=== PATIENT | male | born 1980 ===

== ENCOUNTER 2016-09-28 09:11 | Emergency (ER) | payer OTHER ==
[2016-09-28 09:21] VITALS: BP 120/68; PULSE 93; RESP 18; TEMP 96.6; O2SAT 98
--- NOTE | 2016-09-28 10:48 | ED PDOC ---
Upper Extremity Pain/Injury Time Seen by Provider: 09/28/16 09:24 Chief Complaint (Nursing): Finger,Hand,&Wrist Chief Complaint (Provider): left thumb pain History Per: Patient History/Exam Limitations: no limitations Onset/Duration Of Symptoms: Days (1) Current Symptoms Are (Timing): Still Present Quality: Sharp Severity: Moderate Exacerbating Factor(s): Strenuous Use Of Affected Area, Movement Additional Complaint(s): 36yo male c/o left thumb pain after being arrested yesterday and "the cuffs being too tight". Denies other injury. R hand dominant. Past Medical History Reviewed: Historical Data, Nursing Documentation, Vital Signs Vital Signs: Last Vital Signs Temp 96.6 F L 09/28/16 09:18 Pulse 93 H 09/28/16 09:18 Resp 18 09/28/16 09:18 BP 120/68 09/28/16 09:18 Pulse Ox 98 09/28/16 09:18 - Medical History PMH: Anxiety, Asthma, Back Problems, Bipolar Disorder, Depression, HTN, Pancreatitis Denies: Chronic Kidney Disease - Family History Family History: States: Unknown Family Hx - Social History Drugs: Denies - Immunization History Hx Tetanus Toxoid Vaccination: Yes Hx Influenza Vaccination: No Hx Pneumococcal Vaccination: No - Home Medications Home Medications: Ambulatory Orders Medication Instructions Recorded Ibuprofen 600 mg PO Q6H PRN #15 tab 03/31/15 Acetaminophen with Codeine 1 tab PO Q8H #10 tab 05/25/16 [Tylenol with Codeine No. 3 300 mg-30 mg] Methylprednisolone [Medrol Dose 4 mg PO DAILY #21 tab 05/25/16 Pack (21 tabs)] Ibuprofen [Motrin Tab] 600 mg PO Q6 PRN #15 tab 09/28/16 - Allergies Allergies/Adverse Reactions: Allergies Allergy/AdvReac Type Severity Reaction Status Date / Time No Known Allergies Allergy Verified 09/28/16 09:25 Review of Systems ROS Statement: Except As Marked, All Systems Reviewed And Found Negative Constitutional: Negative for: Fever, Chills Cardiovascular: Negative for: Chest Pain, Palpitations Genitourinary Male: Negative for: Dysuria, Frequency Musculoskeletal: Positive for: Hand Pain Physical Exam - Reviewed Nursing Documentation Reviewed: Yes Vital Signs Reviewed: Yes - Physical Exam Appears: Positive for: Well, Non-toxic Head Exam: Positive for: ATRAUMATIC Skin: Positive for: Normal Color, Warm, Dry Eye Exam: Positive for: Normal appearance. Negative for: Periorbital swelling Neck: Positive for: Painless ROM Respiratory: Negative for: Respiratory Distress Extremity: Positive for: Normal ROM, Other (+tenderness thenar eminence L hand, mild edema no ecchymosis deformity or lacerations) - ECG O2 Sat by Pulse Oximetry: 98 Medical Decision Making Medical Decision Making: Will check hand XRay and initiate pain control w motrin 600mg PO x1 Accession No. : [id number] Patient Name / ID : BUCKY HENRY / [id number] Exam Date : 09/28/2016 10:23:56 ( Approved ) Study Comment : Sex / Age : M / 36Y Creator : Seth Granados MD Dictator : Seth Granados MD Animal Cop : Core Microarchitect : Seth Granados MD Approver2 : Report Date : 09/28/2016 11:25:45 My Comment : PROCEDURE: Left Hand Radiographs. HISTORY: thumb pain L hand COMPARISON: None. FINDINGS: BONES: No fracture. There is an expansile lytic lesion the ulnar base of the 4th proximal phalanx. There is cortical thinning. This is a circumscribed lesion with a sharp zone of transition. Most likely diagnosis is enchondroma. Recommend further evaluation. Consider orthopedic referral. Metallic orthopedic hardware in distal ulna, likely status post ORIF. JOINTS: Normal. No osteoarthritic changes. SOFT TISSUES: Normal. OTHER FINDINGS: None. IMPRESSION: Lytic expansile lesion at the base of the 4th proximal phalanx. Possible enchondroma. Recommend further evaluation. Consider orthopedic referral. No acute fracture. Unremarkable thumb Referred to hand surgery online marketing specialist and explained mandatory importance of followup. Disposition - Clinical Impression Clinical Impression: Enchondroma of bone, Thumb sprain - Patient ED Disposition Is Patient to be Admitted: No Counseled Patient/Family Regarding: Studies Performed, Diagnosis, Need For Followup, Rx Given - Disposition Referrals: Flaquito Becker MD [Staff Provider] - Disposition: Routine/Home Disposition Time: 11:20 Condition: STABLE Additional Instructions: See hand surgeon for evaluation of possible enchondroma of left 4th finger. This may require surgery or repeat/ further testing. Use splint for your hand, take pain medication as directed. Prescriptions: Ibuprofen [Motrin Tab] 600 mg PO Q6 PRN #15 tab PRN Reason: Pain, Moderate (4-7) Instructions: Finger Sprain (ED)
--- NOTE | 2016-09-28 11:27 | RAD ---
PROCEDURE: Left Hand Radiographs. HISTORY: thumb pain L hand COMPARISON: None. FINDINGS: BONES: No fracture. There is an expansile lytic lesion the ulnar base of the 4th proximal phalanx. There is cortical thinning. This is a circumscribed lesion with a sharp zone of transition. Most likely diagnosis is enchondroma. Recommend further evaluation. Consider orthopedic referral. Metallic orthopedic hardware in distal ulna, likely status post ORIF. JOINTS: Normal. No osteoarthritic changes. SOFT TISSUES: Normal. OTHER FINDINGS: None. IMPRESSION: Lytic expansile lesion at the base of the 4th proximal phalanx. Possible enchondroma. Recommend further evaluation. Consider orthopedic referral. No acute fracture. Unremarkable thumb. Status post ORIF distal ulna.
== END 2016-09-28 12:06 | disposition home or self-care (01) ==
LOC: H.ER 09:11
DX: S63.602A Unspecified sprain of left thumb, initial encounter (principal); X50.9XXA Other and unspecified overexertion or strenuous movements or postures, initial encounter; Y92.89 Other specified places as the place of occurrence of the external cause; D16.9 Benign neoplasm of bone and articular cartilage, unspecified; F31.9 Bipolar disorder, unspecified; F41.9 Anxiety disorder, unspecified; I10 Essential (primary) hypertension

== ENCOUNTER 2016-09-29 00:27 | Emergency (ER) | payer OTHER ==
[2016-09-29 00:36] VITALS: BP 131/79; PULSE 97; RESP 18; TEMP 98.9; O2SAT 98
--- NOTE | 2016-09-29 00:59 | ED PDOC ---
Upper Extremity Pain/Injury Time Seen by Provider: 09/29/16 00:41 Chief Complaint (Nursing): Upper Extremity Problem/Injury Chief Complaint (Provider): wrist pain History Per: Patient Additional Complaint(s): Right-hand dominant male presents with pain to left wrist for several days. Patient was placed under arrest a few days ago and sprained his wrist/hand from handcuff. He is currently wearing a velcro wrist splint. Patient has been taking Motrin but he ran out of this medication so he came to ED this evening. He is requesting Motrin dose at this time. He denies any more recent trauma. He was seen yesterday in ED and had x-ray done which was negative for fracture or dislocation. Past Medical History Reviewed: Historical Data, Nursing Documentation, Vital Signs Vital Signs: Last Vital Signs Temp 98.9 F 09/29/16 00:34 Pulse 97 H 09/29/16 00:34 Resp 18 09/29/16 00:34 BP 131/79 09/29/16 00:34 Pulse Ox 98 09/29/16 00:34 - Medical History PMH: Anxiety, Asthma, Back Problems, Bipolar Disorder, Depression, HTN - Surgical History Other surgeries: left wrist fracture repair - Family History Family History: States: No Known Family Hx - Living Arrangements Living Arrangements: Other (non domiciled) - Social History Current smoker - smoking cessation education provided: Yes Alcohol: None Drugs: Cannabis - Immunization History Hx Tetanus Toxoid Vaccination: Yes - Home Medications Home Medications: Ambulatory Orders Medication Instructions Recorded Ibuprofen 600 mg PO Q6H PRN #15 tab 03/31/15 Acetaminophen with Codeine 1 tab PO Q8H #10 tab 05/25/16 [Tylenol with Codeine No. 3 300 mg-30 mg] Methylprednisolone [Medrol Dose 4 mg PO DAILY #21 tab 05/25/16 Pack (21 tabs)] Ibuprofen [Motrin Tab] 600 mg PO Q6 PRN #15 tab 09/28/16 - Allergies Allergies/Adverse Reactions: Allergies Allergy/AdvReac Type Severity Reaction Status Date / Time No Known Allergies Allergy Verified 09/28/16 09:25 Review of Systems ROS Statement: Except As Marked, All Systems Reviewed And Found Negative Musculoskeletal: Positive for: Other (left hand and wrist pain) Physical Exam - Reviewed Nursing Documentation Reviewed: Yes Vital Signs Reviewed: Yes - Physical Exam Appears: Positive for: Well, Non-toxic, No Acute Distress Neck: Positive for: Normal, Painless ROM Respiratory: Negative for: Respiratory Distress Extremity: Positive for: Other (mild tenderness left thumb with full ROM, full left wrist with pain, no swelling or ecchymosis noted) Neurologic/Psych: Positive for: Alert, Oriented - ECG O2 Sat by Pulse Oximetry: 98 Pulse Ox Interpretation: Normal Medical Decision Making Medical Decision Makin36 year old with left hand and wrist pain Plan: PO motrin Previous chart reviewed. X-ray showed incidental finding of enchondroma. Patient states he is aware finding and was referred to hand specialist for follow-up. Patient was instructed to continue with motrin for pain. Disposition - Clinical Impression Clinical Impression: Pain in wrist, Pain of hand - Patient ED Disposition Is Patient to be Admitted: No Counseled Patient/Family Regarding: Diagnosis, Need For Followup - Disposition Referrals: [facility] [Provider Group] Disposition: Routine/Home Disposition Time: 00:59 Condition: STABLE Additional Instructions: Continue with [id number] Tylenol or Motrin for pain. Follow-up with primary doctor or with clinic. Instructions: Wrist Injury (ED), Finger Sprain (ED)
== END 2016-09-29 01:13 | disposition home or self-care (01) ==
LOC: H.ER 00:27
DX: M25.532 Pain in left wrist (principal); I10 Essential (primary) hypertension; F31.9 Bipolar disorder, unspecified

== ENCOUNTER 2016-10-04 01:18 | Emergency (ER) | payer OTHER ==
[2016-10-04 01:30] VITALS: BP 133/77; PULSE 94; RESP 16; TEMP 98.2; O2SAT 97
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
[2016-10-04] MEDS ORDERED: cefTRIAXone (Rocephin) 250 mg Inj IM ONE (02:16)
[2016-10-04] MEDS ORDERED: cefTRIAXone (Rocephin) 250 mg Inj ONE (02:25)
[2016-10-04] MEDS ORDERED: Lidocaine 1% Inj (20ml) ONE (02:26)
[2016-10-04] MEDS ORDERED: Sterile Water 10 ML IV ONE (03:47)
== END 2016-10-04 02:18 | disposition home or self-care (01) ==
LOC: H.ER 01:18
DX: Z11.3 Encounter for screening for infections with a predominantly sexual mode of transmission (principal); R42 Dizziness and giddiness; F31.9 Bipolar disorder, unspecified; F41.9 Anxiety disorder, unspecified; I10 Essential (primary) hypertension; K85.90 Acute pancreatitis without necrosis or infection, unspecified

== ENCOUNTER 2016-10-05 10:56 | Emergency (ER) | payer OTHER ==
[2016-10-05 11:00] VITALS: BP 129/81; PULSE 84; RESP 18; TEMP 97.7; O2SAT 99
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
== END 2016-10-05 12:30 | disposition home or self-care (01) ==
LOC: H.ER 10:56
DX: M54.9 Dorsalgia, unspecified (principal); M79.673 Pain in unspecified foot; I10 Essential (primary) hypertension

== ENCOUNTER 2016-10-07 15:27 | Emergency (ER) | payer OTHER ==
[2016-10-07 15:36] VITALS: RESP 18; O2SAT 99
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
[2016-10-07 23:43] VITALS: BP 130/78; PULSE 78; TEMP 97.6
== END 2016-10-07 23:43 | disposition left against medical advice (07) ==
LOC: H.ER 15:27
DX: S09.90XA Unspecified injury of head, initial encounter (principal); S00.12XA Contusion of left eyelid and periocular area, initial encounter; Y04.0XXA Assault by unarmed brawl or fight, initial encounter; Y92.89 Other specified places as the place of occurrence of the external cause

== ENCOUNTER 2016-10-18 03:12 | Emergency (ER) | payer OTHER ==
[2016-10-18 03:21] VITALS: BP 116/67; PULSE 70; RESP 18; TEMP 98.1; O2SAT 100
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
[2016-10-18 04:01] LABS: BASO % 0.4 % (0.0-2.0); EOS # 0.2 K/uL (0.0-0.7); EOS % 3.1 % (0.0-4.0); HEMATOCRIT 40.8 % (35.0-51.0); LYMPH # 2.7 K/uL (1.0-4.3); LYMPH % 41.3 % (20.0-40.0); MEAN CELL VOLUME 88.7 fl (80.0-94.0); MEAN CORPUSCULAR HEMOGLOBIN 30.4 pg (27.0-31.0); MEAN CORPUSCULAR HGB CONC 34.2 g/dL (33.0-37.0); MEAN PLATELET VOLUME 9.7 fl (7.2-11.7); MONO # 0.5 K/uL (0.0-0.8); MONO % 8.1 % (0.0-10.0); NEUT % 47.1 % (50.0-75.0); NRBC % 0.2 % (0.0-0.0); RED CELL DISTRIBUTION WIDTH 12.9 % (11.5-14.5); WHITE BLOOD COUNT 6.5 K/uL (4.8-10.8)
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
[2016-10-18 04:10] LABS: ALB/GLOB RATIO 1.3 (1.0-2.1); ALKALINE PHOSPHATASE 42 U/L (38-126); ALT/SGPT 59 U/L (21-72); AST/SGOT 45 U/L (17-59); BILIRUBIN,TOTAL 0.4 mg/dl (0.2-1.3); BLOOD UREA NITROGEN 9 mg/dl (9-20); CARBON DIOXIDE 25 mmol/L (22-30); CHLORIDE 108 mmol/L (98-107); GFR AFRICAN-AMERICAN > 60; GLUCOSE,RANDOM 93 mg/dL (75-110); POTASSIUM 3.9 MMOL/L (3.6-5.0); SODIUM 142 mmol/l (132-148); TOTAL PROTEIN 6.6 G/DL (6.3-8.2)
== END 2016-10-18 05:13 | disposition home or self-care (01) ==
LOC: H.ER 03:12
DX: R51 Headache (principal); I10 Essential (primary) hypertension; K85.90 Acute pancreatitis without necrosis or infection, unspecified; F31.9 Bipolar disorder, unspecified; F41.9 Anxiety disorder, unspecified; G89.29 Other chronic pain; J45.909 Unspecified asthma, uncomplicated; F17.200 Nicotine dependence, unspecified, uncomplicated

== ENCOUNTER 2016-10-31 22:47 | Emergency (ER) | payer OTHER ==
[2016-10-31 23:02] VITALS: BP 161/85; PULSE 82; RESP 16; TEMP 98; O2SAT 100
--- NOTE | 2016-11-01 00:56 | ED PDOC ---
HPI: Psych/Substance Abuse Time Seen by Provider: 10/31/16 23:21 Chief Complaint (Nursing): Substance Abuse Chief Complaint (Provider): Denies complaint History Per: Patient History/Exam Limitations: no limitations Additional Complaint(s): Pt reports smoking marijuana and doing PCP today. PT states he has no complaints and is homeless so he has nowhere to go. Past Medical History Reviewed: Historical Data, Nursing Documentation, Vital Signs Vital Signs: Last Vital Signs Temp 98.0 F 10/31/16 22:52 Pulse 82 10/31/16 22:52 Resp 16 10/31/16 22:52 BP 161/85 H 10/31/16 22:52 Pulse Ox 100 10/31/16 22:52 - Medical History PMH: Anxiety, Asthma, Back Problems, Bipolar Disorder, Depression, HTN, Pancreatitis Denies: Chronic Kidney Disease - Surgical History Surgical History: No Surg Hx - Family History Family History: States: Unknown Family Hx - Living Arrangements Living Arrangements: With Family - Social History Current smoker - smoking cessation education provided: No Alcohol: Occasional Drugs: Cannabis, Other - Immunization History Hx Tetanus Toxoid Vaccination: Yes Hx Influenza Vaccination: No Hx Pneumococcal Vaccination: No - Home Medications Home Medications: Ambulatory Orders Medication Instructions Recorded Ibuprofen [Motrin] 600 mg PO Q6 PRN #15 tab 10/05/16 traZODone 100 mg PO HS 10/17/16 - Allergies Allergies/Adverse Reactions: Allergies Allergy/AdvReac Type Severity Reaction Status Date / Time No Known Allergies Allergy Verified 10/05/16 11:33 Review of Systems ROS Statement: Except As Marked, All Systems Reviewed And Found Negative Physical Exam - Reviewed Nursing Documentation Reviewed: Yes Vital Signs Reviewed: Yes - Physical Exam Appears: Positive for: Well, Non-toxic, No Acute Distress Head Exam: Positive for: ATRAUMATIC, NORMAL INSPECTION, NORMOCEPHALIC Skin: Positive for: Normal Color, Warm, DRY Eye Exam: Positive for: EOMI, Normal appearance, PERRL ENT: Positive for: Normal ENT Inspection Neck: Positive for: Normal, Painless ROM Cardiovascular/Chest: Positive for: Regular Rate, Rhythm Respiratory: Positive for: CNT, Normal Breath Sounds Gastrointestinal/Abdominal: Positive for: Normal Exam, Bowel Sounds, Soft Back: Positive for: Normal Inspection Extremity: Positive for: Normal ROM Neurologic/Psych: Positive for: Alert, Oriented - ECG O2 Sat by Pulse Oximetry: 100 Medical Decision Making Medical Decision Making: EKG - NSR Disposition - Clinical Impression Clinical Impression: Substance abuse - Patient ED Disposition Is Patient to be Admitted: No Counseled Patient/Family Regarding: Diagnosis, Need For Followup - Disposition Referrals: [facility] [Outside] Disposition: Routine/Home Disposition Time: 00:54 Condition: GOOD Instructions: Polysubstance Abuse (ED)
--- NOTE | 2016-11-01 12:21 | CARD ---
APPROVED REPORT EKG Measurement Heart [id number] <Conclusion> Normal sinus rhythm Normal ECG
== END 2016-11-01 01:11 | disposition home or self-care (01) ==
LOC: H.ER 22:47
DX: F19.10 Other psychoactive substance abuse, uncomplicated (principal); F31.9 Bipolar disorder, unspecified; F41.9 Anxiety disorder, unspecified; I10 Essential (primary) hypertension; J45.909 Unspecified asthma, uncomplicated; K85.90 Acute pancreatitis without necrosis or infection, unspecified

== ENCOUNTER 2017-03-12 14:27 | Emergency (ER) | payer OTHER ==
[2017-03-12 14:33] VITALS: BP 129/43; PULSE 93; RESP 18; TEMP 97; O2SAT 98
--- NOTE | 2017-03-12 15:58 | ED PDOC ---
Lower Extremity Pain/Injury Time Seen by Provider: 03/12/17 15:08 Chief Complaint (Nursing): Lower Extremity Problem/Injury Chief Complaint (Provider): Right ankle pain History Per: Patient History/Exam Limitations: no limitations Onset/Duration Of Symptoms: Hrs Current Symptoms Are (Timing): Still Present Additional History Per: Patient Additional Complaint(s): The patient is a 36yo male, brought to the ED by EMS for evaluation. Patient states he was walking on an uneven sidewalk, tripped and fell, sustaining abrasions to his left palm and right lower extremity. he denies any drug or alcohol usage today. He offers no additional medical complaints. Past Medical History Reviewed: Historical Data, Nursing Documentation, Vital Signs Vital Signs: Last Vital Signs Temp 97 F L 03/12/17 14:29 Pulse 93 H 03/12/17 14:29 Resp 18 03/12/17 14:29 BP 129/43 L 03/12/17 14:29 Pulse Ox 98 03/12/17 14:29 - Medical History PMH: Anxiety, Asthma, Back Problems, Bipolar Disorder, Depression, HTN (no meds) , Pancreatitis Denies: Chronic Kidney Disease - Surgical History Surgical History: No Surg Hx - Family History Family History: States: Unknown Family Hx - Social History Current smoker - smoking cessation education provided: No Alcohol: None Drugs: Denies - Immunization History Hx Tetanus Toxoid Vaccination: Yes Hx Influenza Vaccination: No Hx Pneumococcal Vaccination: No - Home Medications Home Medications: Ambulatory Orders Medication Instructions Recorded Ibuprofen [Motrin] 600 mg PO Q6 PRN #15 tab 10/05/16 traZODone 100 mg PO HS 10/17/16 - Allergies Allergies/Adverse Reactions: Allergies Allergy/AdvReac Type Severity Reaction Status Date / Time No Known Allergies Allergy Verified 03/12/17 14:29 Review of Systems Musculoskeletal: Positive for: Hand Pain (right), Leg Pain (left) Psych: Negative for: Other (EtOH or drug use) Physical Exam - Reviewed Nursing Documentation Reviewed: Yes Vital Signs Reviewed: Yes - Physical Exam Appears: Positive for: Non-toxic, No Acute Distress Head Exam: Positive for: ATRAUMATIC, NORMAL INSPECTION, NORMOCEPHALIC Skin: Positive for: Warm, Dry Neck: Positive for: Supple Cardiovascular/Chest: Positive for: Regular Rate, Rhythm Respiratory: Positive for: Normal Breath Sounds. Negative for: Respiratory Distress Extremity: Positive for: Normal ROM, Other (abrasion to left palm). Negative for: Deformity, Swelling Neurologic/Psych: Positive for: Alert, Oriented. Negative for: Motor/Sensory Deficits - ECG O2 Sat by Pulse Oximetry: 98 (RA) Pulse Ox Interpretation: Normal Medical Decision Making Medical Decision Making: Time: 1514 Impression: Right ankle pain s/p fall Plan: -- XR Right ankle Reassess Scribe Attestation: Documented by Nisha Flores acting as a scribe for XENIA Villarreal Provider Attestation: All medical record entries made by the Scribe were at my direction and personally dictated by me. I have reviewed the chart and agree that the record accurately reflects my personal performance of the history, physical exam, medical decision making, and the department course for this patient. I have also personally directed, reviewed, and agree with the discharge instructions and disposition. Disposition - Clinical Impression Clinical Impression: Ankle injury - Patient ED Disposition Is Patient to be Admitted: No Counseled Patient/Family Regarding: Diagnosis, Need For Followup - Disposition Referrals: [facility] [Outside] [facility] [Outside] Disposition: Routine/Home Disposition Time: 17:23 Condition: GOOD Additional Instructions: Ice, elevation, motrin for pain. Instructions: Ankle Sprain (ED) Forms: [employer] (Nepali)
--- NOTE | 2017-03-13 10:22 | RAD ---
PROCEDURE: Right Ankle Radiographs. HISTORY: right ankle pain, twisted, lateral COMPARISON: None FINDINGS: BONES: No evidence of acute fracture. JOINTS: Suspicious for joint effusion. No osteoarthritis. Ankle mortise maintained. Talar dome intact SOFT TISSUES: Mild soft tissue swelling around the right ankle more prominent laterally. OTHER FINDINGS: None. IMPRESSION: No evidence of acute fracture or dislocation. Suspicious for right ankle joint effusion. Mild soft tissue swelling laterally.
== END 2017-03-12 17:39 | disposition home or self-care (01) ==
LOC: H.ER 14:27
DX: S93.401A Sprain of unspecified ligament of right ankle, initial encounter (principal); W19.XXXA Unspecified fall, initial encounter; Y92.89 Other specified places as the place of occurrence of the external cause; F31.9 Bipolar disorder, unspecified; F41.9 Anxiety disorder, unspecified; I10 Essential (primary) hypertension

== ENCOUNTER 2017-03-20 04:11 | Emergency (ER) | payer OTHER ==
[2017-03-20 04:21] VITALS: BP 136/84; PULSE 74; RESP 17; TEMP 98.1; O2SAT 98
--- NOTE | 2017-03-20 04:35 | ED PDOC ---
HPI: General Adult Time Seen by Provider: 03/20/17 04:20 Chief Complaint (Nursing): GI Problem Chief Complaint (Provider): Dizziness/Lightheadedness History Per: Patient History/Exam Limitations: no limitations Onset/Duration Of Symptoms: Days (x1) Additional Complaint(s): Manuel Reis is a 36 year old male who was brought to the emergency department by EMS for dizziness and lightheadedness. Patient is homeless coming for bed to sleep in, offering multiple complaints such as dizziness, lightheadedness, and insomnia. He admits to using marijuana tonight and denies alcohol use. No further medical complaints PMD: None provided Past Medical History Reviewed: Historical Data, Nursing Documentation, Vital Signs Vital Signs: Last Vital Signs Temp 98.1 F 03/20/17 04:18 Pulse 74 03/20/17 04:18 Resp 17 03/20/17 04:18 BP 136/84 03/20/17 04:18 Pulse Ox 98 03/20/17 04:38 - Medical History PMH: Anxiety, Asthma, Back Problems, Bipolar Disorder, Depression, HTN (no meds) , Pancreatitis Denies: Chronic Kidney Disease - Family History Family History: States: Unknown Family Hx - Social History Drugs: Cannabis - Immunization History Hx Tetanus Toxoid Vaccination: Yes Hx Influenza Vaccination: No Hx Pneumococcal Vaccination: No - Home Medications Home Medications: Ambulatory Orders Medication Instructions Recorded Ibuprofen [Motrin] 600 mg PO Q6 PRN #15 tab 10/05/16 traZODone 100 mg PO HS 10/17/16 - Allergies Allergies/Adverse Reactions: Allergies Allergy/AdvReac Type Severity Reaction Status Date / Time No Known Allergies Allergy Verified 03/12/17 14:29 Review of Systems ROS Statement: Except As Marked, All Systems Reviewed And Found Negative Constitutional: Positive for: Other (Insomnia) Cardiovascular: Positive for: Light Headedness Neurological: Positive for: Dizziness Physical Exam - Reviewed Nursing Documentation Reviewed: Yes Vital Signs Reviewed: Yes - Physical Exam Appears: Positive for: Well (appears disheveled), Non-toxic, No Acute Distress Head Exam: Positive for: ATRAUMATIC, NORMAL INSPECTION, NORMOCEPHALIC Skin: Positive for: Normal Color, Warm, Dry Eye Exam: Positive for: EOMI, Normal appearance, PERRL Neck: Positive for: Normal, Painless ROM, Supple Cardiovascular/Chest: Positive for: Regular Rate, Rhythm. Negative for: Murmur Respiratory: Positive for: Normal Breath Sounds. Negative for: Respiratory Distress Gastrointestinal/Abdominal: Positive for: Normal Exam, Bowel Sounds, Soft. Negative for: Tenderness Back: Positive for: Normal Inspection. Negative for: L CVA Tenderness, R CVA Tenderness Extremity: Positive for: Normal ROM. Negative for: Pedal Edema, Deformity Neurologic/Psych: Positive for: Alert, Oriented. Negative for: Motor/Sensory Deficits - ECG O2 Sat by Pulse Oximetry: 98 (RA) Pulse Ox Interpretation: Normal Medical Decision Making Medical Decision Making: Initial Impression: homelessness Initial Plan: Discharge Scribe Attestation: Documented by Jeffy Gresham, acting as a scribe for Luis Roberts MD Provider Scribe Attestation: All medical record entries made by the Scribe were at my direction and personally dictated by me. I have reviewed the chart and agree that the record accurately reflects my personal performance of the history, physical exam, medical decision making, and the department course for this patient. I have also personally directed, reviewed, and agree with the discharge instructions and disposition. Disposition - Clinical Impression Clinical Impression: Homelessness - Patient ED Disposition Is Patient to be Admitted: No - Disposition Referrals: [facility] [Outside] Disposition: Routine/Home Disposition Time: 05:30 Condition: STABLE Instructions: Normal Exam (ED) Forms: [employer] (Vincentian)
== END 2017-03-20 06:07 | disposition home or self-care (01) ==
LOC: H.ER 04:11
DX: Z59.0 Homelessness (principal); F12.90 Cannabis use, unspecified, uncomplicated; F31.9 Bipolar disorder, unspecified; F41.9 Anxiety disorder, unspecified; I10 Essential (primary) hypertension

== ENCOUNTER 2017-03-30 18:02 | Emergency (ER) | payer OTHER ==
[2017-03-30 18:08] VITALS: BP 144/84; PULSE 78; RESP 18; TEMP 98.2; O2SAT 99
--- NOTE | 2017-03-30 18:19 | ED PDOC ---
HPI: General Adult Time Seen by Provider: 03/30/17 18:11 Chief Complaint (Nursing): Abnormal Skin Integrity Chief Complaint (Provider): bug bite, ankle pain History Per: Patient History/Exam Limitations: no limitations Onset/Duration Of Symptoms: Days Current Symptoms Are (Timing): Still Present Additional Complaint(s): 36 y/o male presents to the emergency department with a complaint of pain and itching to left arm where he was bit by an insect yesterday. Patient is not sure what insect bit him. He has not taken any meds for itchiness or pain. Patient also complains of a constant ankle pain since he sprained his ankle last week. He was evaluated at the time of ankle injury and had x-rays that were negative. Patient states he needs an rx for motrin for pain control. Past Medical History Reviewed: Historical Data, Nursing Documentation, Vital Signs Vital Signs: Last Vital Signs Temp 98.2 F 03/30/17 18:05 Pulse 78 03/30/17 18:05 Resp 18 03/30/17 18:05 BP 144/84 03/30/17 18:05 Pulse Ox 99 03/30/17 18:56 - Medical History PMH: Anxiety, Asthma, Back Problems, Bipolar Disorder, Depression - Family History Family History: States: No Known Family Hx - Social History Current smoker - smoking cessation education provided: Yes Alcohol: None Drugs: Denies - Home Medications Home Medications: Ambulatory Orders Medication Instructions Recorded Ibuprofen [Motrin] 600 mg PO Q6 PRN #15 tab 10/05/16 traZODone 100 mg PO HS 10/17/16 DiphenhydrAMINE [Benadryl] 25 mg PO ASDIR #1 packet 03/30/17 Hydrocortisone [Hydrocortisone 1 applic TOP TID #1 tube 03/30/17 2.5% Cream] Ibuprofen [Motrin] 600 mg PO Q6 PRN #15 tab 03/30/17 - Allergies Allergies/Adverse Reactions: Allergies Allergy/AdvReac Type Severity Reaction Status Date / Time No Known Allergies Allergy Verified 03/22/17 02:38 Review of Systems ROS Statement: Except As Marked, All Systems Reviewed And Found Negative Musculoskeletal: Positive for: Other (right ankle pain) Skin: Positive for: Other (Insect bite to left arm) Physical Exam - Reviewed Nursing Documentation Reviewed: Yes Vital Signs Reviewed: Yes - Physical Exam Appears: Positive for: Well, Non-toxic, No Acute Distress Head Exam: Positive for: NORMOCEPHALIC Skin: Positive for: Normal Color. Negative for: Rash Eye Exam: Positive for: Normal appearance Extremity: Positive for: Other (insect bite left forearm, no infection, no bullseye rash, full rom right ankle) Neurologic/Psych: Positive for: Alert, Oriented, Gait (steady) - ECG O2 Sat by Pulse Oximetry: 99 (RA) Pulse Ox Interpretation: Normal Medical Decision Making Medical Decision Making: Time: 1815 Initial Impression: Insect bite and right ankle pain Initial Plan: --Motrin 600 mg PO dose given in ED X-ray right ankle from 03/13/17 is negative for fracture/dislocation. Patient is ambulatory with steady gait in ED. Time: 1817 Patient is medically stable, and requires no further treatment in the ED at this time. Patient will be discharged home with Rx for Benadryl 25 mg, Motrin 600 mg, and Hydrocortisone 2.5% cream. Counseling was provided and all questions were answered regarding diagnosis and need for follow up with clinic. There is agreement to discharge plan. Return if symptoms persist or worsen. Clinical Impression: Insect bite and ankle pain Scribe Attestation: Documented by Chayito Ramirez, acting as a scribe for Zoila Hyatt PA-C. Provider Scribe Attestation: All medical record entries made by the Scribe were at my direction and personally dictated by me. I have reviewed the chart and agree that the record accurately reflects my personal performance of the history, physical exam, medical decision making, and the department course for this patient. I have also personally directed, reviewed, and agree with the discharge instructions and disposition. Disposition - Clinical Impression Clinical Impression: Insect bite, Ankle pain - Patient ED Disposition Is Patient to be Admitted: No Counseled Patient/Family Regarding: Studies Performed, Diagnosis, Need For Followup, Rx Given - Disposition Referrals: [facility] [Outside] Disposition: Routine/Home Disposition Time: 18:18 Condition: STABLE Additional Instructions: Take rx meds as directed. Follow up with clinic. Prescriptions: DiphenhydrAMINE [Benadryl] 25 mg PO ASDIR #1 packet Hydrocortisone [Hydrocortisone 2.5% Cream] 1 applic TOP TID #1 tube Ibuprofen [Motrin] 600 mg PO Q6 PRN #15 tab PRN Reason: Pain, Moderate (4-7) Instructions: Ankle Sprain (ED), Insect Bite or Sting (ED) Forms: [employer] (Mongolian)
== END 2017-03-30 18:26 | disposition home or self-care (01) ==
LOC: H.ER 18:02
DX: M25.571 Pain in right ankle and joints of right foot (principal)

== ENCOUNTER 2017-04-03 11:02 | Emergency (ER) | payer OTHER ==
[2017-04-03 11:08] VITALS: BP 126/76; PULSE 97; TEMP 97
[2017-04-03 11:09] VITALS: BMI 25.8
[2017-04-03 11:22] VITALS: O2SAT 98
--- NOTE | 2017-04-03 13:05 | ED PDOC ---
Upper Extremity Pain/Injury Time Seen by Provider: 04/03/17 11:16 Chief Complaint (Nursing): Upper Extremity Problem/Injury Chief Complaint (Provider): Wrist pain, awhile, no trauma Current Symptoms Are (Timing): Still Present Severity: Mild Additional Complaint(s): Pt sleeping on arrival. 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 No recent tauma to wrist. PT has not taken any medication for it. Past Medical History Reviewed: Historical Data, Nursing Documentation, Vital Signs Vital Signs: Last Vital Signs Temp 97 F L 04/03/17 11:07 Pulse 97 H 04/03/17 11:07 Resp BP 126/76 04/03/17 11:07 Pulse Ox 98 04/03/17 11:21 - Medical History PMH: Anxiety, Asthma, Back Problems, Bipolar Disorder, Depression, HTN (no meds) , Pancreatitis Denies: Chronic Kidney Disease - Surgical History Surgical History: No Surg Hx - Family History Family History: States: Unknown Family Hx - Living Arrangements Living Arrangements: With Family - Social History Current smoker - smoking cessation education provided: No - Immunization History Hx Tetanus Toxoid Vaccination: Yes Hx Influenza Vaccination: No Hx Pneumococcal Vaccination: No - Home Medications Home Medications: Ambulatory Orders Medication Instructions Recorded Ibuprofen [Motrin] 600 mg PO Q6 PRN #15 tab 10/05/16 traZODone 100 mg PO HS 10/17/16 DiphenhydrAMINE [Benadryl] 25 mg PO ASDIR #1 packet 03/30/17 Hydrocortisone [Hydrocortisone 1 applic TOP TID #1 tube 03/30/17 2.5% Cream] Ibuprofen [Motrin] 600 mg PO Q6 PRN #15 tab 03/30/17 - Allergies Allergies/Adverse Reactions: Allergies Allergy/AdvReac Type Severity Reaction Status Date / Time No Known Allergies Allergy Verified 03/22/17 02:38 Review of Systems ROS Statement: Except As Marked, All Systems Reviewed And Found Negative Constitutional: Negative for: Fever, Chills Musculoskeletal: Positive for: Other (Left wrist pain ) Skin: Negative for: Rash, Bruising Physical Exam - Reviewed Nursing Documentation Reviewed: Yes Vital Signs Reviewed: Yes - Physical Exam Appears: Positive for: Well, Non-toxic, No Acute Distress Head Exam: Positive for: ATRAUMATIC, NORMAL INSPECTION, NORMOCEPHALIC Skin: Positive for: Normal Color, Warm, DRY Eye Exam: Positive for: Normal appearance ENT: Positive for: Normal ENT Inspection Neck: Positive for: Normal, Painless ROM Cardiovascular/Chest: Positive for: Regular Rate, Rhythm Respiratory: Positive for: Normal Breath Sounds. Negative for: Accessory Muscle Use, Respiratory Distress Pulses-Radial (L): 2+ Pulses-Radial (R): 2+ Back: Positive for: Normal Inspection Extremity: Positive for: Normal ROM (No abnormalities of the wrists ). Negative for: Tenderness, Deformity, Swelling Neurologic/Psych: Positive for: Alert, Oriented - ECG O2 Sat by Pulse Oximetry: 98 Medical Decision Making Medical Decision Making: Velcro wrist splints placed. Disposition - Clinical Impression Clinical Impression: Wrist pain - Patient ED Disposition Is Patient to be Admitted: No Counseled Patient/Family Regarding: Diagnosis, Need For Followup - Disposition Disposition: Routine/Home Disposition Time: 12:49 Condition: GOOD Instructions: Arthralgia (ED) Forms: [facility] (Khmer)
== END 2017-04-03 14:28 | disposition home or self-care (01) ==
LOC: H.ER 11:02
DX: M25.532 Pain in left wrist (principal); F31.9 Bipolar disorder, unspecified; F41.9 Anxiety disorder, unspecified; I10 Essential (primary) hypertension

== ENCOUNTER 2017-04-04 12:46 | Inpatient (IN) | payer MEDICAID, OTHER ==
[2017-04-04 12:46] VITALS: BMI 25.8
[2017-04-04 12:59] VITALS: O2SAT 99
--- NOTE | 2017-04-04 13:50 | ED PDOC ---
HPI: Psych/Substance Abuse Time Seen by Provider: 04/04/17 12:49 Chief Complaint (Nursing): Psychiatric Evaluation Chief Complaint (Provider): Depression History Per: Patient History/Exam Limitations: no limitations Onset/Duration Of Symptoms: Days Current Symptoms Are (Timing): Still Present Associated Symptoms: Anger, Agitation, Depression. denies: Suicidal Thoughts, Suicidal Plan Additional Complaint(s): 36yo male, brought to the ED by EMS for evaluation after patient was seen screaming outside the homeless longterm. Patient reports he feels depressed as his mom 4 years ago and he has been having intermittent episodes of depression since then. He denies taking any medications to alleviate his symptoms. He denies any suicidal ideation, homicidal ideation, hallucinations. Patient offers no physical complaints. Past Medical History Reviewed: Historical Data, Nursing Documentation, Vital Signs Vital Signs: Last Vital Signs Temp 98.2 F 04/04/17 12:47 Pulse 88 04/04/17 12:47 Resp 16 04/04/17 12:47 BP 129/82 04/04/17 12:47 Pulse Ox 99 04/04/17 12:47 - Medical History PMH: Anxiety, Asthma, Back Problems, Bipolar Disorder, Depression, HTN (no meds) , Pancreatitis Denies: Chronic Kidney Disease - Surgical History Surgical History: No Surg Hx - Family History Family History: States: No Known Family Hx, Unknown Family Hx - Living Arrangements Living Arrangements: Alone - Immunization History Hx Tetanus Toxoid Vaccination: Yes Hx Influenza Vaccination: No Hx Pneumococcal Vaccination: No - Home Medications Home Medications: Ambulatory Orders Medication Instructions Recorded DiphenhydrAMINE [Benadryl] 25 mg PO ASDIR #1 packet 03/30/17 Hydrocortisone [Hydrocortisone 1 applic TOP TID #1 tube 03/30/17 2.5% Cream] Ibuprofen [Motrin] 600 mg PO Q6 PRN #15 tab 03/30/17 - Allergies Allergies/Adverse Reactions: Allergies Allergy/AdvReac Type Severity Reaction Status Date / Time No Known Allergies Allergy Verified 03/22/17 02:38 Review of Systems ROS Statement: Except As Marked, All Systems Reviewed And Found Negative Psych: Positive for: Depression. Negative for: Suicidal ideation Physical Exam - Reviewed Nursing Documentation Reviewed: Yes Vital Signs Reviewed: Yes - Physical Exam Appears: Positive for: Non-toxic Head Exam: Positive for: ATRAUMATIC, NORMAL INSPECTION, NORMOCEPHALIC Skin: Positive for: Warm, Dry Eye Exam: Positive for: Normal appearance Neck: Positive for: Supple Cardiovascular/Chest: Positive for: Regular Rate, Rhythm Respiratory: Positive for: Normal Breath Sounds. Negative for: Respiratory Distress Gastrointestinal/Abdominal: Positive for: Normal Exam Extremity: Positive for: Normal ROM Neurologic/Psych: Positive for: Alert, Oriented (x 3), Mood/Affect (crying, at times patient is verbally aggressive) - Laboratory Results Result Diagrams: 04/04/17 14:05 04/04/17 14:05 - ECG ECG: Positive for: Interpreted By Me ECG Rhythm: Positive for: Sinus Rhythm. Negative for: ST/T Changes Rate: 73 O2 Sat by Pulse Oximetry: 99 (RA) Pulse Ox Interpretation: Normal - Radiology X-Ray: Interpreted by Me (CXR) X-Ray Interpretation: No Acute Disease - Progress ED Course And Treament: Pt. is becoming mroe agitated. Ativan 2mg IM ordered. Pt. evaluated by crisis and arrangements made for admission. Medical Decision Making Medical Decision Making: Time: 1311 Impression: Depression Plan: -- labs -- Crisis evaluation Reassess Scribe Attestation: Documented by Nisha Flores acting as a scribe for XENIA Bragg Provider Attestation: All medical record entries made by the Scribe were at my direction and personally dictated by me. I have reviewed the chart and agree that the record accurately reflects my personal performance of the history, physical exam, medical decision making, and the department course for this patient. I have also personally directed, reviewed, and agree with the discharge instructions and disposition. Disposition - Clinical Impression Clinical Impression: Bipolar 1 disorder - Patient ED Disposition Is Patient to be Admitted: Yes - Disposition Disposition Time: 19:15 Condition: STABLE
[2017-04-04 14:16] LABS: BASO % 0.5 % (0.0-2.0); EOS # 0.4 K/uL (0.0-0.7); EOS % 6.3 % (0.0-4.0); HEMATOCRIT 47.7 % (35.0-51.0); LYMPH # 2.5 K/uL (1.0-4.3); MEAN CELL VOLUME 90.8 fl (80.0-94.0); MEAN CORPUSCULAR HEMOGLOBIN 29.9 pg (27.0-31.0); MEAN CORPUSCULAR HGB CONC 32.9 g/dL (33.0-37.0); MONO # 0.7 K/uL (0.0-0.8); MONO % 10.4 % (0.0-10.0); NEUT % 45.8 % (50.0-75.0); NRBC % 0.2 % (0.0-0.0); RED CELL DISTRIBUTION WIDTH 13.7 % (11.5-14.5); WHITE BLOOD COUNT 6.7 K/uL (4.8-10.8)
[2017-04-04 14:22] LABS: ALB/GLOB RATIO 1.5 (1.0-2.1); ALCOHOL SERUM < 10 mg/dl (0-10); ALKALINE PHOSPHATASE 51 U/L (38-126); ALT/SGPT 62 U/L (21-72); AST/SGOT 39 U/L (17-59); BILIRUBIN,TOTAL 0.6 mg/dl (0.2-1.3); BLOOD UREA NITROGEN 12 mg/dl (9-20); CALCIUM 8.9 mg/dL (8.4-10.2); CARBON DIOXIDE 25 mmol/L (22-30); CHLORIDE 105 mmol/L (98-107); GFR AFRICAN-AMERICAN > 60; GLUCOSE,RANDOM 89 mg/dL (75-110); POTASSIUM 4.1 MMOL/L (3.6-5.0); SODIUM 143 mmol/l (132-148); TOTAL PROTEIN 7.4 G/DL (6.3-8.2)
[2017-04-04 15:08] LABS: RBC URINE 2 /hpf (0-3); URINE BILIRUBIN NEGATIVE (NEGATIVE); URINE BLOOD NEGATIVE (NEGATIVE); URINE COLOR STRAW (YELLOW); URINE GLUCOSE (UA) NEG (Normal); URINE KETONE NEGATIVE (NEGATIVE); URINE LEUKOCYTE ESTERASE NEG Leu/uL (Negative); URINE PROTEIN NEGATIVE (NEGATIVE); URINE UROBILINOGEN 0.2-1.0 mg/dL (0.2-1.0); WBC URINE < 1 /hpf (0-5)
--- NOTE | 2017-04-04 18:43 | RAD ---
HISTORY: clearane COMPARISON: No prior. FINDINGS: LUNGS: No active pulmonary disease. PLEURA: No significant pleural effusion identified, no pneumothorax apparent. CARDIOVASCULAR: Normal. OSSEOUS STRUCTURES: No significant abnormalities. VISUALIZED UPPER ABDOMEN: Normal. OTHER FINDINGS: None. IMPRESSION: No active disease.
[2017-04-04] MEDS ORDERED: Magnesium Hydroxide Susp 30 ml UD PO PRN (20:35)
[2017-04-04] MEDS ORDERED: Alum-Mag Hydrox-Simethicone Susp (30 mL) PO PRN (20:35)
[2017-04-04] MEDS ORDERED: DiphenhydrAMINE 50 mg/ml Inj IM PRN (20:35)
--- NOTE | 2017-04-04 22:54 | PCM.BM ---
<Kiersten Hagan - Last Filed: 04/04/17 22:52> Treatment assets and liabiliti Patient Assests: resourceful, self-reliant, physically healthy, strong inez Patient Liabilities: poor support system, relationship conflicts, substance abuse, legal issue - Milieu Protocol Maintain good personal hygiene: daily Encourage regular showers, other Remind patient to perform daily oral care Conduct patient checks and document Observation sheet: Q15 minutes Maintain personal safety: every shift Educate patient to report safety concerns to staff, every shift Monitor environment for contraband/sharps Medication safety: Monitor for expected outcome, potential side effects: every shift, Assess barriers to learning: every shift, Assess readiness for medication education: every shift <John Reynolds - Last Filed: 04/06/17 13:34> Family Contact Family involvement: Famdon/SO not involved Family contact: Patient declines to allow family contact at present Family contact name: Pt did not identify any family to contact. - Goals for Treatment Patient goals for treatment: Pt would like a few days to collect his thoughts. Discharge/Continuing Care - Education Needs Education Needs: Patient Medication, Patient Diagnosis/Disease Process, Patient Coping Skills, Patient Community resources, Patient Aftercare Safety Plan - Discharge Discharge Criteria: Tolerates medication w/o severe side effects, Free of paranoid thoughts, Free of agitation, Normal sleep pattern, No longer exhibiting s/s of withdrawal, Reduction of target symptoms Discharge to:: [facility] - Treatment Team Participation Was Patient/Family/SO present at Treatment Team Meeting: Yes <Caprice Mcnally - Last Filed: 04/07/17 15:58> Discharge/Continuing Care - Treatment Team Participation Patient/Family/SO Statement: 04/07/17 15:54 Patient attended tx team this morning this far participation. Patient tangential , labile and disorganized, requiring refocusing and redirection. Patient religiously preoccupied and grandiose. Patient identified poor social/family supports, grandmothers ailing health and homelessness as primary stressors. Insight limited. Coping skills/judgment grossly impaired. Patient discharge focused. Extensive psychoeducation regarding benefits of further stabilization provided. Discussed with Family/SO: No
--- NOTE | 2017-04-05 06:35 | CARD ---
APPROVED REPORT EKG Measurement Heart [id number] MD [id number] <Conclusion> Normal sinus rhythm Normal ECG
[2017-04-05 10:14] LABS: T4 8.49 ug/dl (5.5-11.0)
[2017-04-05 10:28] LABS: THYROID STIMULATING HORMONE 0.23 mIU/ML (0.46-4.68)
[2017-04-05] MEDS ORDERED: Valproic Acid 250 mg/5 ml UD Cup PO SCH (11:15)
[2017-04-05] MEDS ORDERED: RISPERIDONE 0.25 MG ODT PO SCH (11:15)
[2017-04-05] MEDS ORDERED: Valproic Acid 250 mg/5 ml UD Cup PO STA (11:21)
[2017-04-05] MEDS: Risperidone M tab 1 MG PO STA (11:55)
--- NOTE | 2017-04-05 13:15 | PCM.PSYCH ---
Initial Psychiatric Evaluation - Initial Psychiatric Evaluation Chief Complaint (in patient's own words): i was brought in by ems because i was having an argument with another resident at [facility] Patient's Reaction to Hospitalization: pt is verbally agreeable for admission History of Present Illness and Precipitating Events: reports having argument at [facility] (outside), has been feeling depressed, is homeless, feeling depressed since of mother approx. 4 years ago. Reports that was feeling lonely, does not feel he is where he thought he would be at this point in his life. reports being told was bipolar in past but defers treatment. reports that was treated with trazodone in the past for sleep but admits it was taken intermittently. reports uses pcp and benzodiazepines on street-helps me relax and to forget. while on unit initially patient was irritable, demanding and requesting specific time frames relate to various issues. pt was able to be redirected and appeared to respond better when one issues was addressed at a time. Discussed current lof, inlcuding substance us and reported hx. of bipolar. Reviewed/psychoeducation was was provided related to risperdal and valproic acid-including possible side effects and need for blood levels-pt was verbally agreeable. Current Medications: Active Medications Generic Name Dose Route Start Last Admin Trade Name Freq PRN Reason Stop Dose Admin Acetaminophen 650 mg 04/04/17 20:35 Tylenol 325mg Tab PO Q4 PRN t>101,headache,pain 1-7 Al Hydrox/Mg Hydrox/Simethicone 30 ml 04/04/17 20:35 Maalox Plus 30 Ml PO Q4 PRN Dyspepsia Diphenhydramine HCl 50 mg 04/04/17 20:35 Benadryl IM Q6 PRN Extrapyramidal S/S Unable PO Diphenhydramine HCl 50 mg 04/04/17 20:35 Benadryl PO Q6 PRN Extrapyramidal Symptoms Diphenhydramine HCl 50 mg 04/04/17 20:41 Benadryl PO HS PRN Sleep Haloperidol 5 mg 04/04/17 20:35 Haldol PO Q4 PRN Agitation Haloperidol Lactate 5 mg 04/04/17 20:35 Haldol IM Q4 PRN Agitation, Unable to Take PO Lorazepam 2 mg 04/04/17 20:35 Ativan IM Q4 PRN Anxiety/Agitation,Unable PO Lorazepam 2 mg 04/04/17 20:35 Ativan PO Q4 PRN Anxiety/Agitation Magnesium Hydroxide 30 ml 04/04/17 20:35 Milk Of Magnesia PO HS PRN Constipation Risperidone 1 mg 04/05/17 22:00 Risperdal Tab PO HS LUBNA Valproate Sodium 500 mg 04/05/17 22:00 Depakene Oral Syrup PO HS LUBNA Valproate Sodium 250 mg 04/06/17 09:00 Depakene Oral Soln PO DAILY LUBNA Past Psychiatric History - Past Psychiatric History Prior Professional Help: reports being treated for bipolar but defers detail/ follow up History of Abuse: denies History of ETOH/Drug Use: thc, pcp, benzodiazepine History of Family Illness: denies Pertinent Medical Hx (Current Medical&Sleep Prob, Allergies): Allergies Allergy/AdvReac Type Severity Reaction Status Date / Time No Known Allergies Allergy Verified 03/22/17 02:38 DiphenhydrAMINE [Benadryl] 25 mg PO ASDIR #1 packet 03/30/17 Hydrocortisone [Hydrocortisone 2.5% Cream] 1 applic TOP TID #1 tube 03/30/17 Ibuprofen [Motrin] 600 mg PO Q6 PRN #15 tab 03/30/17 Review of Systems - Psychiatric Psychiatric: Abnormal Sleep Pattern, Anxiety, Behavioral Changes, Depression, Irritability, Mood Swings, Suicidal Ideation Additional comments: no plan Mental Status Examination - Personal Presentation Personal Presentation: Looks stated age - Affect Affect: Broad - Motor Activity Motor Activity: Psychomotor Agitation - Reliability in Providing Information Reliability in Providing Information: Poor, due to altered mood - Speech Speech: Tangential - Mood Mood: Anxious - Formal Thought Process Formal Thought Process: Flight of ideas - Obsessions/Compulsions Obsessions: No Compulsions: No (although does appear to be focused on knowing exact times, etc. ) DSM 5 DX - DSM 5 DSM 5 Diagnosis: Bipolar I MRE Manic Poly substance use: thc, benzodiazepine, pcp alteration in domicile: homeless - Recommended/Plan of Treatment Treatment Recommendations and Plan of Treatment: inpt admission per dr hyde vital signs/clinical observation per protocol and per status prns per unit protocol hospitalist consult start: risperdal m tab 1mg po now then starting tonight risperdal mtab 1 mg po hs valproic acid/depakene liquid 250mg po am and 500mg po hs with valproic acid left [id number] am before am valproic acid/depakene liquid adjust meds per status discharge planning in progress Projected ELOS: 5-7 days Prognosis: guarded Discharge Plan and Discharge Criteria: safety - Smoking Cessation Smoking Cessation Initiated: Yes
[2017-04-05] MEDS: Valproic Acid 250 mg/5 ml Oral Syrup (60 ml) PO SCH (21:03)
[2017-04-06] MEDS: Valproic Acid 250 mg/5 ml UD Cup PO SCH (10:36)
--- NOTE | 2017-04-06 11:41 | CON ---
ENDOCRINOLOGY CONSULT DATE: LOCATION: Psychiatry, room #321. HISTORY OF PRESENT ILLNESS: This is a 36-year-old male admitted with increasing bouts of agitation, aggression, and major depression and is now being followed for close psychiatric evaluation and management and is also being referred for evaluation of abnormal thyroid function studies. PAST MEDICAL HISTORY: As mentioned above, history of chronic schizoaffective disorder with episodic bouts of generalized anxiety and depression and insomnia and has been on trazodone medications in the past. FAMILY HISTORY: Positive for hypertension and heart disease. No known thyroid endocrinopathy. SOCIAL HISTORY: Patient actually lives in a long term with recent homelessness as noted and admits to illicit drug use, done on the streets with usage of PCP and benzodiazepines as noted. REVIEW OF SYSTEMS: As mentioned above, admits to generalized body weakness with increasing bouts of insomnia, agitation, and restlessness, especially in the last day or so prior to admission. As mentioned above, admits to increasing bouts of psychomotor agitation and restlessness with emotional dysphoria and depressive symptoms as noted. Also admits to episodic bouts of dizziness and lightheadedness with increasing generalized body weakness. No chest pains or palpitations or PND. His oral intake is variable but otherwise satisfactory with occasional dyspepsia. Denies any alterations of bowel and urinary patterns. SOCIAL HISTORY: Patient denies any alcohol or nicotine use, but admits to illicit drug use as mentioned including use of marijuana. PHYSICAL EXAMINATION: GENERAL: This is an average-built male, in no apparent distress. VITAL SIGNS: Blood pressure 150/90, pulse of 70 beats per minute and regular, temperature 98, respirations 20, height is 5 feet 7 inches, weight is 160 pounds. HEENT: Head normocephalic. Eyes anicteric with pink conjunctivae. Funduscopy not possible at this time. Ears, nose, and throat otherwise normal. NECK: Supple. Thyroid gland is normal in size. No carotid bruits or cervical adenopathy. CARDIOPULMONARY: Some adynamic precordium. S1, S2 is rapid and regular. LUNGS: Clear to auscultation. ABDOMEN: Flat, soft with positive bowel sounds. EXTREMITIES: No peripheral edema. Pulses are +2 bilaterally. LABORATORY DATA: Chemistries show the thyroxine or T4 level of 8.49 with a T3 of 3.36 and a TSH of 0.23. ASSESSMENT: This is a 36-year-old male with the so-called acute sick euthyroid syndrome and remains clinically and biochemically euthyroid otherwise as noted. This is a transient phenomenon to the acute emotional stressors as mentioned and is an adaptive mechanism for coping with the above mentioned emotional stress as noted. There is no known history otherwise of thyroid disorder as noted. He presents here with acute onset of generalized anxiety and depression on the background of chronic schizoaffective disorder. PLAN OF MANAGEMENT: We will obtain a comprehensive thyroid hormonal profile over the next day or so and should expect improvement biochemically as noted thereof. No indication at this time for any kind of thyroid pharmacotherapy. We will obtain thyroid antibodies that will confirm and/or indicate the presence of underlying thyroid autoimmunity. No indication at this time for any kind of thyroid pharmacotherapy as noted. We will follow. Wendy Melissa MD
--- NOTE | 2017-04-06 14:24 | PN ---
ENDO FOLLOWUP NOTE DATE: LOCATION: Room 321, Psychiatry. SUBJECTIVE: This is a 36-year-old male admitted with major depressive disorder on the background of chronic schizoaffective disorder and is now being followed closely in the Psychiatric Unit and also followed closely from the metabolic view point as noted. He remains clinically and biochemically euthyroid at this time. The initial chemistry showed a BUN of 12, sodium 143, potassium 4.1, chloride 105, CO2 of 25, glucose 89, and creatinine 0.7. The initial thyroid study showed a T4 of 8.49 with a TSH of 0.23 and a T3 of 3.36. This is indicative of the so-called acute sick euthyroid syndrome, which should be only temporary and should improve accordingly as his clinical status improves. We will repeat the thyroid studies tomorrow and observe the improvement thereof as indicated. No indication for now for any kind of thyroid pharmacotherapy. Wendy Melissa MD
--- NOTE | 2017-04-06 15:54 | CP.PCM.CON ---
History of Present Illness - History of Present Illness History of Present Illness: 36 yo male with history of depression admitted to psyche unit because of worsening depression. Review of Systems - Review of Systems All systems: reviewed and no additional remarkable complaints except (aside from those mentioned above, 12 point system review were negative by me) Past Patient History - Infectious Disease Hx of Infectious Diseases: None - Tetanus Immunizations Tetanus Immunization: Unknown - Past Medical History & Family History Past Medical History?: No - Past Social History Smoking Status: Light Smoker < 10 Cigarettes Daily Alcohol: None Drugs: Cannabis Home Situation {Lives}: Homeless - CARDIAC Hx Hypertension: Yes (no meds) - PULMONARY Hx Asthma: Yes - NEUROLOGICAL HX Cerebrovascular Accident: No Hx Seizures: No - HEENT Hx HEENT Problems: No - RENAL Hx Chronic Kidney Disease: No - ENDOCRINE/METABOLIC Hx Endocrine Disorders: No - HEMATOLOGICAL/ONCOLOGICAL Hx Cancer: No Hx Human Immunodeficiency Virus (HIV): No - INTEGUMENTARY Hx Dermatological Problems: No - MUSCULOSKELETAL/RHEUMATOLOGICAL Hx Musculoskeletal Disorders: No - GASTROINTESTINAL Hx Pancreatitis: Yes - GENITOURINARY/GYNECOLOGICAL Hx Sexually Transmitted Disorders: No - PSYCHIATRIC Hx Anxiety: Yes Hx Bipolar Disorder: Yes Hx Depression: Yes - SURGICAL HISTORY Hx Surgeries: Yes Other/Comment: REMOVAL OF CHICKEN BONE ENDOSCOPY - ANESTHESIA Hx Anesthesia: Yes Hx Anesthesia Reactions: No Hx Malignant Hyperthermia: No Has any member of the family had a problem w/ anesthesia?: No Meds Allergies/Adverse Reactions: Allergies Allergy/AdvReac Type Severity Reaction Status Date / Time No Known Allergies Allergy Verified 03/22/17 02:38 - Medications Medications: Current Medications Acetaminophen (Tylenol 325mg Tab) 650 mg PO Q4 PRN PRN Reason: t>101,headache,pain 1-7 Al Hydrox/Mg Hydrox/Simethicone (Maalox Plus 30 Ml) 30 ml PO Q4 PRN PRN Reason: Dyspepsia Diphenhydramine HCl (Benadryl) 50 mg IM Q6 PRN PRN Reason: Extrapyramidal S/S Unable PO Diphenhydramine HCl (Benadryl) 50 mg PO Q6 PRN PRN Reason: Extrapyramidal Symptoms Diphenhydramine HCl (Benadryl) 50 mg PO HS PRN PRN Reason: Sleep Haloperidol (Haldol) 5 mg PO Q4 PRN PRN Reason: Agitation Haloperidol Lactate (Haldol) 5 mg IM Q4 PRN PRN Reason: Agitation, Unable to Take PO Lorazepam (Ativan) 2 mg IM Q4 PRN PRN Reason: Anxiety/Agitation,Unable PO Lorazepam (Ativan) 2 mg PO Q4 PRN PRN Reason: Anxiety/Agitation Last Admin: 04/06/17 14:19 Dose: 2 mg Magnesium Hydroxide (Milk Of Magnesia) 30 ml PO HS PRN PRN Reason: Constipation Nicotine (Nicoderm Cq) 1 patch TD DAILY [facility] Last Admin: 04/06/17 10:35 Dose: 1 patch Risperidone (Risperdal Tab) 1 mg PO HS [facility] Last Admin: 04/05/17 21:03 Dose: 1 mg Valproate Sodium (Depakene Oral Syrup) 500 mg PO HS [facility] Last Admin: 04/05/17 21:03 Dose: 500 mg Valproate Sodium (Depakene Oral Soln) 250 mg PO DAILY [facility] Last Admin: 04/06/17 10:36 Dose: 250 mg Physical Exam - Constitutional Appears: No Acute Distress - Head Exam Head Exam: ATRAUMATIC - Eye Exam Eye Exam: absent: Scleral icterus - ENT Exam ENT Exam: Mucous Membranes Moist - Neck Exam Neck exam: Negative for: Meningismus - Respiratory Exam Respiratory Exam: absent: Rhonchi, Wheezes, Respiratory Distress - Cardiovascular Exam Cardiovascular Exam: REGULAR RHYTHM, +S1, +S2 - GI/Abdominal Exam GI & Abdominal Exam: Soft. absent: Tenderness - Rectal Exam Rectal Exam: Deferred - Extremities Exam Extremities exam: Negative for: pedal edema - Neurological Exam Neurological exam: Alert, Oriented x3 - Psychiatric Exam Psychiatric exam: Normal Affect - Skin Skin Exam: Dry, Intact Results - Vital Signs Recent Vital Signs: Last Vital Signs Temp 97.2 F L 04/06/17 09:00 Pulse 99 H 04/06/17 09:00 Resp 19 04/06/17 09:00 BP 114/64 04/06/17 09:00 Pulse Ox 99 04/04/17 21:59 - Labs Result Diagrams: 04/04/17 14:05 04/04/17 14:05 Labs: Laboratory Results - last 24 hr 04/05/17 09:10 RPR Nonreactive Assessment & Plan (1) Depression Status: Acute Comment: psyche is managing
--- NOTE | 2017-04-06 18:37 | PCM.PYCHPN ---
Psychiatric Progress Note - Psychiatric Progress Note Patient seen today, length of contact: chart reviewed case discussed with team Patient Chief Complaint: reports is feeling calmer, slept better, not as irritable-expresses concern about an [place] [facility] [place] pt is somewhat loud at times but appears to be somewhat less as compared to initial presentation. did receive one prn dose of lorazepam today due to some irritability. pt was started risperdal and valproic acid yesterday. is seen in milieu with select peers-was able to talk with this singer songwriter in a calmer and more goal directed manner as compared to yesterday. Problems Identified/Issues Discussed: alteration in mood Medical Problems: elevated thyroid studies pt being consulted by dr. 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 Mental Status Examination - Cognitive Function Orientation: Person, Place, Situation, Time Memory: Intact Attention: WNL Concentration: WNL Association: WNL Fund of Knowledge: WNL Decription of patient's judgement and insights: impaired - Mood Mood: Anxious - Affect Affect: Broad - Formal Thought Process Formal Thought Process: Flight of ideas - Homicidal Ideation Homicidal Ideation: No Goal/Treatment Plan - Goal/Treatment Plan Progress Toward Problem(s) and Goals/Treatment Plan: inpt/milieu vital signs/clinical observation per protocol and per status prns per unit protocol hospitalist consult endocrine consult continue: risperdal m tab 1mg po now then starting tonight risperdal mtab 1 mg po hs valproic acid/depakene liquid 250mg po am and 500mg po hs with valproic acid left [id number] am before am valproic acid/depakene liquid adjust meds per status discharge planning in progress Estimated Date of D/C: 04/08/17 - Smoking Cessation Smoking Cessation Initiated: Yes
[2017-04-06] MEDS: Valproic Acid 250 mg/5 ml Oral Syrup (60 ml) PO SCH (21:14)
[2017-04-07 07:06] LABS: BLOOD UREA NITROGEN 12 mg/dl (9-20); CARBON DIOXIDE 28 mmol/L (22-30); CHLORIDE 105 mmol/L (98-107); GFR AFRICAN-AMERICAN > 60; GLUCOSE,RANDOM 89 mg/dL (75-110); POTASSIUM 4.3 MMOL/L (3.6-5.0); SODIUM 141 mmol/l (132-148); TOTAL PROTEIN 6.2 G/DL (6.3-8.2)
[2017-04-07 07:07] LABS: ALB/GLOB RATIO 1.4 (1.0-2.1); ALKALINE PHOSPHATASE 40 U/L (38-126); ALT/SGPT 45 U/L (21-72); AST/SGOT 27 U/L (17-59); BILIRUBIN,TOTAL 0.3 mg/dl (0.2-1.3)
[2017-04-07 07:20] LABS: THYROID STIMULATING HORMONE 0.94 mIU/ML (0.46-4.68)
[2017-04-07] MEDS: Valproic Acid 250 mg/5 ml UD Cup PO SCH (10:03)
[2017-04-07] MEDS: Divalproex 500 mg DR(BID formulation) PO SCH ×2 (13:33→17:55)
--- NOTE | 2017-04-07 14:27 | PCM.PYCHPN ---
Psychiatric Progress Note - Psychiatric Progress Note Patient seen today, length of contact: chart reviewed case discussed with team Patient Chief Complaint: I WANT TO FEEL STABLE TO WORK AGAIN Problems Identified/Issues Discussed: PATIENT PRESENTING WITH LABILE MOOD AND AND AFFECT AND HYPERACTIVITY DSM 5 Symptoms Update: BIPOLAR I DISORDER MRE MIXED Medication Change: Yes (INCREASE DEPAKOTE TO 500MG BID) Medical Record Reviewed: Yes Mental Status Examination - Cognitive Function Orientation: Person, Place, Situation, Time Memory: Intact Attention: WNL Concentration: WNL Association: WNL Fund of Knowledge: WNL - Mood Mood: Anxious, Euphoric - Affect Affect: Broad, Depressed - Speech Speech: Pressured - Formal Thought Process Formal Thought Process: Circumstantial - Suicidal Ideation Suicidal Ideation: No - Homicidal Ideation Homicidal Ideation: No Goal/Treatment Plan - Goal/Treatment Plan Need for Continued Stay: Discharge may exacerbated symptoms Progress Toward Problem(s) and Goals/Treatment Plan: PATIENT CONTINUES TO PRESENT WITH LABILE MOOD AND AFFECT WILL INCREASE DEPAKOTE, CONTINUE WITH RISPERIDONE, FOLLOW UP ON DEPAKOTE LEVEL Estimated Date of D/C: 04/08/17
--- NOTE | 2017-04-07 16:32 | CARD ---
APPROVED REPORT EKG Measurement Heart [id number] <Conclusion> Normal sinus rhythm Normal ECG
--- NOTE | 2017-04-07 22:10 | PN ---
ENDOCRINOLOGY FOLLOWUP NOTE DATE: LOCATION: Psychiatry, room #321. SUBJECTIVE: This is a 36-year-old male admitted with major depression and was found to have abnormal thyroid function studies and is now being followed closely for metabolic management. His repeat thyroid studies showed a T4 of 7.90 with a free T4 of 1.0 and T3 of 2.85 and a TSH of 0.94. ASSESSMENT AND PLAN: So, at this time, we will expect improvement both clinically and metabolically of his thyroid indices as noted. No indication at this time for any kind of thyroid pharmacotherapy as noted. He will follow with his medical doctor for outpatient metabolic management. We will follow and advise accordingly. Wendy Melissa MD
[2017-04-08 09:12] VITALS: BP 120/86; PULSE 93; RESP 20; TEMP 96.8
[2017-04-08] MEDS: Divalproex 500 mg DR(BID formulation) PO SCH ×2 (12:52→18:07)
--- NOTE | 2017-04-08 14:14 | PCM.PYCHPN ---
Psychiatric Progress Note - Psychiatric Progress Note Patient seen today, length of contact: chart reviewed case discussed with team Patient Chief Complaint: Ineed to get out of here Problems Identified/Issues Discussed: PATIENT PRESENTING WITH LABILE MOOD AND AND AFFECT AND HYPERACTIVITY patient became aggressive intrusive and threatening to staff had to be chemicaly restrained for risk of hurting self and others DSM 5 Symptoms Update: bipolar disorder mre mixed with psychotic features polysubstance use disorder Medication Change: Yes (INCREASE risperidone to 3mg qhs) Medical Record Reviewed: Yes Mental Status Examination - Cognitive Function Orientation: Person, Place, Situation, Time Memory: Intact Attention: Poor Concentration: Poor Association: Loose Fund of Knowledge: Poor - Mood Mood: Anxious, Euphoric - Affect Affect: Broad - Speech Speech: Loud, Pressured - Formal Thought Process Formal Thought Process: Paranoia, Circumstantial - Suicidal Ideation Suicidal Ideation: No - Homicidal Ideation Homicidal Ideation: No Goal/Treatment Plan - Goal/Treatment Plan Need for Continued Stay: Discharge may exacerbated symptoms Progress Toward Problem(s) and Goals/Treatment Plan: PATIENT CONTINUES TO PRESENT WITH LABILE MOOD AND AFFECT WILL INCREASE risperidone to 3mg qhs continue with depakote patitent continues to be labile and disorganized , signed request to be discharged patient will be referred to be screened for involuntary admission as continues to be unstable for discharge Estimated Date of D/C: 04/08/17
--- NOTE | 2017-04-08 22:16 | PN ---
ENDOCRINOLOGY FOLLOWUP NOTE DATE: LOCATION: Room #321, Psychiatry. SUBJECTIVE: This is a 36-year-old male with recent admission for generalized anxiety and depression, currently undergoing close psychiatric evaluation and management and is also being followed closely for metabolic management because of abnormal thyroid studies as noted. He remains clinically euthyroid and a repeat total T4 or thyroxine level is 7.90 with a T3 of 2.85 and a TSH of 0.94 with a free T4 of 1.00. So, at this time, we will continue the same present psychiatric management and hold off any kind of thyroid pharmacotherapy as there is no indication for treatment of this condition. He has the so-called acute sick euthyroid syndrome, which should improve as his clinical condition improves accordingly. We will sign off from the endocrine care at this time. Wendy Melissa MD
[2017-04-09] MEDS: Divalproex 500 mg DR(BID formulation) PO SCH (10:37)
--- NOTE | 2017-04-09 13:42 | PCM.PYCHDC ---
Mental Status Examination - Mental Status Examination Orientation: Person, Place, Situation Memory: Intact Mood: Neutral Affect: Broad Speech: Appropriate, Loud Attention: WNL Association: WNL Fund of Knowledge: Poor Formal Thought Process: No Impairment Description of patient's judgement and insight: poor insight and judgment Psychotic Thoughts and Behaviors: patient denied any delusions or hallucinations non elicited at current time Suicidal Ideation: No Current Homicidal Ideation?: No Discharge Summary - Discharge Note Reason for Hospitalization: Pt is a 36 year old single male brought to [facility] ED by police after pt became loud and agitated at [facility]. Pt reported that the recovery manager of the [facility] called the police. Pt reported that the recovery manager accused him of being loud and cursing and asked him to leave. Pt was getting his things together to leave when the police arrived and brought him to the ED. Pt presents as tangential with loud, rapid speech and intense eye contact. Pt has poor insight into his current condition and does not think that anything is wrong and reported that he only signed in to rest for a few days and collect his thoughts. Pt reported that he is alone and has no family that cares about him and no friends. Pt reported he used PCP a week ago. Pt denied SI/HI and AVT hallucinations. Consultations:: List each consultation separately and include: 1. Reason for request. 2. Findings. 3. Follow-up Summary of Hospital Course include:: 1. Description of specific treatment plan utilized for patients during their course of treatmen. 2. Summarize the time- course for resolution of acute symptoms and/or regressed behaviors. 3. Describe issues identified and worked on during hospitalization. 4. Describe medication utilized. 5. Describe medical problems identified and treated. 6. Reassessment of suicide risk Summary of Hospital Course: patient on admission was loud . manic irritable delusional, hypervigilant patient was started on risperidone an depakote , on second day of admission patient continued to be manic however requested discharge when advised that he need further stabilization patient becamr hypervigilant angry and aggressive verbaly and threatening towards staff patient had to be chemically restrained for safety of self and others patient was referred for screening for involuntary admission however was declined to be admitted involuntary patient continued to demand leaving and was discharged against medical advise on discharge patient mental status , he denied any suicidal or homicidal ideations denied perceptual disturbances or command hallucinations - Diagnosis (1) Bipolar disorder (manic depression) Current Visit: Yes Status: Acute (2) Bipolar disorder current episode depressed Current Visit: Yes Status: Acute - Final Diagnosis (DSM 5) Condition upon Discharge: STABLE Disposition: HOME/ ROUTINE Follow-up Treatment Plan: patient will follow up at outpatient clinic Prescriptions/Medication Reconciliation: Divalproex [Depakote DR(*BID*)] 500 mg PO BID 30 Days #60 tcp risperiDONE [RisperDAL Tab] 2 mg PO BID 30 Days #60 tab - Smoking Cessation Smoking Cessation Medication prescribed: Yes
== END 2017-04-09 14:15 | disposition left against medical advice (07) | DRG 430 ==
LOC: H.ER 12:46 → H.ERHOLD 17:08 → H.PSYCH 19:30
PROVIDERS: ADMIT Psychiatry & Neurology Psychiatry; ATTEND Psychiatry & Neurology Psychiatry
PROC: GZHZZZZ Group Psychotherapy (ICD-10-PCS; principal; 2017-04-04)
PROC: GZ58ZZZ Individual Psychotherapy, Cognitive-Behavioral (ICD-10-PCS; 2017-04-04)
DX: F31.60 Bipolar disorder, current episode mixed, unspecified (principal); Z78.1 Physical restraint status; I10 Essential (primary) hypertension; F13.10 Sedative, hypnotic or anxiolytic abuse, uncomplicated; F25.8 Other schizoaffective disorders; E07.81 Sick-euthyroid syndrome; F12.90 Cannabis use, unspecified, uncomplicated; F41.1 Generalized anxiety disorder; F63.81 Intermittent explosive disorder; G47.00 Insomnia, unspecified; J45.909 Unspecified asthma, uncomplicated; F17.210 Nicotine dependence, cigarettes, uncomplicated; Z59.0 Homelessness

== ENCOUNTER 2017-04-10 23:10 | Emergency (ER) | payer MEDICAID, OTHER ==
[2017-04-10 23:10] VITALS: BMI 25.8
[2017-04-10 23:16] VITALS: BP 127/85; PULSE 101; RESP 16; TEMP 97; O2SAT 96
--- NOTE | 2017-04-11 00:24 | ED PDOC ---
HPI: General Adult Time Seen by Provider: 04/10/17 23:20 Chief Complaint (Nursing): Cough, Cold, Congestion Chief Complaint (Provider): Coughing up Blood History Per: Patient History/Exam Limitations: no limitations Onset/Duration Of Symptoms: Days (x1) Current Symptoms Are (Timing): Still Present Additional Complaint(s): Manuel Reis is a 36 year old male with an extensive psychiatric history and polysubstance abuse that presents to the ED with a chief complaint of coughing up blood that he reports began yesterday but have since resolved. Patient denies any fever, vomiting, or diarrhea. Past Medical History Reviewed: Historical Data, Nursing Documentation, Vital Signs Vital Signs: Last Vital Signs Temp 97 F L 04/10/17 23:13 Pulse 101 H 04/10/17 23:13 Resp 16 04/10/17 23:13 BP 127/85 04/10/17 23:13 Pulse Ox 96 04/11/17 01:54 - Medical History PMH: Anxiety, Asthma, Back Problems, Bipolar Disorder, Depression, HTN (no meds) , Pancreatitis Denies: Diabetes, Hepatitis, HIV, Chronic Kidney Disease, Seizures, Sexually Transmitted Disease - Family History Family History: States: Unknown Family Hx - Social History Current smoker - smoking cessation education provided: Yes Drugs: Cannabis - Immunization History Hx Tetanus Toxoid Vaccination: Yes Hx Influenza Vaccination: No Hx Pneumococcal Vaccination: No - Home Medications Home Medications: Ambulatory Orders Medication Instructions Recorded No Known Home Med 04/10/17 - Allergies Allergies/Adverse Reactions: Allergies Allergy/AdvReac Type Severity Reaction Status Date / Time No Known Allergies Allergy Verified 04/10/17 01:46 Review of Systems Constitutional: Negative for: Fever Respiratory: Positive for: Cough (cough w/ blood) Gastrointestinal: Negative for: Vomiting, Diarrhea Physical Exam - Physical Exam Appears: Positive for: Non-toxic, No Acute Distress (Patient appears to be under the influence of drugs) Head Exam: Positive for: ATRAUMATIC, NORMOCEPHALIC Skin: Positive for: Normal Color, Warm ENT: Positive for: Other (No active bleeding.) - Laboratory Results Result Diagrams: 04/11/17 01:06 04/11/17 01:06 - ECG O2 Sat by Pulse Oximetry: 96 (RA) Pulse Ox Interpretation: Normal Medical Decision Making Medical Decision Making: Impression: Resolved Symptoms Plan: * CMP * CBC * Reevaluation 1:52 Labs reviewed, no clinically significant abnormalities. Patient has no active bleeding and is currently asleep in ED. Patient advised to follow up with PMD in 1-2 days or return to ED if symptoms worsen, is stable for discharge home. Scribe Attestation: Documented by Brittney Fu, acting as a scribe for Jackie Coronel MD. Provider Scribe Attestation: All medical record entries made by the Scribe were at my direction and personally dictated by me. I have reviewed the chart and agree that the record accurately reflects my personal performance of the history, physical exam, medical decision making, and the department course for this patient. I have also personally directed, reviewed, and agree with the discharge instructions and disposition. Disposition - Clinical Impression Clinical Impression: Cough - Patient ED Disposition Is Patient to be Admitted: No Counseled Patient/Family Regarding: Studies Performed, Diagnosis, Need For Followup - Disposition Referrals: [facility] [Outside] [facility] [Outside] Disposition: Routine/Home Disposition Time: 01:52 Condition: IMPROVED Additional Instructions: follow up with your primary doctor in 1-2 days return to the ED with any worsening or concerning symptoms Instructions: Cold Symptoms (ED) Forms: [employer] (South Korean)
[2017-04-11 01:09] LABS: BASO % 0.6 % (0.0-2.0); EOS # 0.4 K/uL (0.0-0.7); EOS % 5.6 % (0.0-4.0); HEMATOCRIT 42.5 % (35.0-51.0); LYMPH # 2.5 K/uL (1.0-4.3); LYMPH % 33.9 % (20.0-40.0); MEAN CELL VOLUME 90.2 fl (80.0-94.0); MEAN CORPUSCULAR HEMOGLOBIN 29.7 pg (27.0-31.0); MEAN CORPUSCULAR HGB CONC 32.9 g/dL (33.0-37.0); MEAN PLATELET VOLUME 9.7 fl (7.2-11.7); MONO # 0.8 K/uL (0.0-0.8); MONO % 10.3 % (0.0-10.0); NEUT # 3.7 K/uL (1.8-7.0); NEUT % 49.6 % (50.0-75.0); NRBC % 0.1 % (0.0-0.0); RED CELL DISTRIBUTION WIDTH 13.5 % (11.5-14.5); WHITE BLOOD COUNT 7.4 K/uL (4.8-10.8)
[2017-04-11 01:30] LABS: ALB/GLOB RATIO 1.4 (1.0-2.1); ALKALINE PHOSPHATASE 48 U/L (38-126); ALT/SGPT 46 U/L (21-72); AST/SGOT 31 U/L (17-59); BILIRUBIN,TOTAL 0.2 mg/dl (0.2-1.3); BLOOD UREA NITROGEN 15 mg/dl (9-20); CALCIUM 9.2 mg/dL (8.4-10.2); CARBON DIOXIDE 27 mmol/L (22-30); CHLORIDE 105 mmol/L (98-107); GFR AFRICAN-AMERICAN > 60; GLUCOSE,RANDOM 102 mg/dL (75-110); POTASSIUM 3.8 MMOL/L (3.6-5.0); SODIUM 142 mmol/l (132-148); TOTAL PROTEIN 6.9 G/DL (6.3-8.2)
== END 2017-04-11 02:50 | disposition home or self-care (01) ==
LOC: H.ER 23:10
DX: R05 Cough (principal); R04.2 Hemoptysis; Z86.59 Personal history of other mental and behavioral disorders

== ENCOUNTER 2017-07-05 04:35 | Emergency (ER) | payer MEDICAID, OTHER ==
[2017-07-05 04:36] VITALS: BMI 25.8
[2017-07-05 04:49] VITALS: BP 116/69; PULSE 86; RESP 16; TEMP 97.8; O2SAT 96
--- NOTE | 2017-07-05 05:39 | ED PDOC ---
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 Patient states he landed on his back after slipping and falling out of a truck when being dropped home. Notes pain worsens with movement and Tylenol does not mitigate the pain. (-) lower extremity numbness, head injury, neck pain, or bowel incontinence. PCP: [facility] - Risk Factors AAA Risk Factors: Pos: Hypertension Neg: Older Than 49 Years Of Age Past Medical History Reviewed: Historical Data, Nursing Documentation, Vital Signs Vital Signs: Last Vital Signs Temp 97.8 F 07/05/17 04:47 Pulse 86 07/05/17 04:47 Resp 16 07/05/17 04:47 BP 116/69 07/05/17 04:47 Pulse Ox 96 07/05/17 04:47 - Medical History PMH: Anxiety, Asthma, Back Problems, Bipolar Disorder, Depression, HTN (no meds) , Pancreatitis Denies: Diabetes, Hepatitis, HIV, Chronic Kidney Disease, Seizures, Sexually Transmitted Disease - Surgical History Surgical History: No Surg Hx - Family History Family History: States: Unknown Family Hx - Social History Current smoker - smoking cessation education provided: Yes - Immunization History Hx Tetanus Toxoid Vaccination: Yes Hx Influenza Vaccination: No Hx Pneumococcal Vaccination: No - Home Medications Home Medications: Ambulatory Orders Medication Instructions Recorded Cyclobenzaprine [Cyclobenzaprine 10 mg PO TID PRN #15 tab 07/05/17 HCl] Meloxicam [Mobic] 15 mg PO DAILY #20 tab 07/05/17 - Allergies Allergies/Adverse Reactions: Allergies Allergy/AdvReac Type Severity Reaction Status Date / Time No Known Allergies Allergy Verified 07/05/17 04:46 Review of Systems ROS Statement: Except As Marked, All Systems Reviewed And Found Negative Gastrointestinal: Negative for: Other ((-) bowel incontinence) Musculoskeletal: Positive for: Back Pain (lower back pain). Negative for: Neck Pain Neurological: Negative for: Numbness (no lower extremity numbness) Physical Exam - Reviewed Nursing Documentation Reviewed: Yes Vital Signs Reviewed: Yes - Physical Exam Appears: Positive for: Uncomfortable (moderate painful distress) Head Exam: Positive for: ATRAUMATIC, NORMAL INSPECTION, NORMOCEPHALIC Skin: Positive for: Normal Color, Warm, Dry Eye Exam: Positive for: Normal appearance, EOMI, PERRL Neck: Positive for: Normal, Painless ROM, Supple Cardiovascular/Chest: Positive for: Regular Rate, Rhythm. Negative for: Murmur Respiratory: Positive for: Normal Breath Sounds. Negative for: Respiratory Distress Gastrointestinal/Abdominal: Positive for: Soft. Negative for: Tenderness Back: Positive for: Vertebral Tenderness (lumbar and paralumbar tenderness). Negative for: Normal Inspection Extremity: Positive for: Normal ROM. Negative for: Deformity Neurologic/Psych: Positive for: Alert, Oriented. Negative for: Motor/Sensory Deficits - ECG O2 Sat by Pulse Oximetry: 96 (RA) Pulse Ox Interpretation: Normal Medical Decision Making Medical Decision Makin Initial impression: Initial plan: * Flexeril 10mg PO * Toradol 60mg IM * XR LS SPINE WITH OBL>18 YRS OLD * Re-eval XR L SPINE : no fracture, as read by the radiologist. X-ray results discussed with the patient in great detail. Patient instructed to follow-up with orthopedic referral provided or the clinic in 1-2 days without fail. Advised to take medication as prescribed. Return to the emergency room at any time for any new or worsening symptoms. Patient states he fully agrees with and understands discharge instructions. States that he agrees with the plan and disposition. Verbalized and repeated discharge instructions and plan. I have given the patient opportunity to ask any additional questions. Scribe Attestation: Documented by Karla Mckinney acting as a scribe for Rajwinder Corcoran PA-C. Scribe Attestation: All medical record entries made by the Scribe were at my direction and personally dictated by me. I have reviewed the chart and agree that the record accurately reflects my personal performance of the history, physical exam, medical decision making, and the department course for this patient. I have also personally directed, reviewed, and agree with the discharge instructions and disposition. Disposition - Clinical Impression Clinical Impression: Back contusion - Patient ED Disposition Is Patient to be Admitted: No Counseled Patient/Family Regarding: Diagnosis, Need For Followup, Rx Given - Disposition Referrals: Lakshmi Abel MD [Staff Provider] - [facility] [Outside] Disposition: Routine/Home Disposition Time: 06:30 Condition: STABLE Additional Instructions: Thank you for letting us take care of you today. You were treated for back contusion. The emergency medical care you received today was directed at your acute symptoms. If you were prescribed any medication, please fill it and take as directed. It may take several days for your symptoms to resolve. Return to the Emergency Department if your symptoms worsen, do not improve, or if you have any other problems. Please contact your doctor in 2 days for re-evaluation and follow up / or call one of the physicians/clinics you have been referred to that are listed on the Patient Visit Information form that is included in your discharge packet. Bring any paperwork you were given at discharge with you along with any medications you are taking to your follow up visit. Our treatment cannot replace ongoing medical care by a primary care provider (PCP) outside of the emergency department. Thank you for allowing the [employer] team to be part of your care today. If you had an X-Ray : A Radiologist will review the ED reading if any change in treatment is needed we will contact you. Prescriptions: Cyclobenzaprine [Cyclobenzaprine HCl] 10 mg PO TID PRN #15 tab PRN Reason: Muscle Spasm Meloxicam [Mobic] 15 mg PO DAILY #20 tab Instructions: Back Pain (ED) Forms: [employer] (Thai), [facility] ED School/Work Excuse Print Language: NORWEGIAN
--- NOTE | 2017-07-05 09:46 | RAD ---
PROCEDURE: Radiographs of the Lumbar Spine. HISTORY: pain COMPARISON: Lumbar spine radiographs dated 03/31/2015 FINDINGS: BONES: Normal alignment. No listhesis. No fracture. DISC SPACES: Unremarkable. OTHER FINDINGS: None. IMPRESSION: Unremarkable radiographs of the lumbar spine.
== END 2017-07-05 07:10 | disposition home or self-care (01) ==
LOC: H.ER 04:35
DX: M54.9 Dorsalgia, unspecified (principal); F31.9 Bipolar disorder, unspecified; F41.9 Anxiety disorder, unspecified; I10 Essential (primary) hypertension; J45.909 Unspecified asthma, uncomplicated
CPT/HCPCS: 72110; 96372; 99281; J1885

== ENCOUNTER 2017-10-04 02:28 | Emergency (ER) | payer OTHER ==
[2017-10-04 02:28] VITALS: BMI 24.3
[2017-10-04 02:37] VITALS: BP 112/76; PULSE 81; RESP 18; TEMP 97.5; O2SAT 97
[2017-10-04] MEDS ORDERED: Naproxen 500 MG TAB PO STA (03:29)
[2017-10-04] MEDS ORDERED: Naproxen 500 MG TAB PO ONE (03:37)
--- NOTE | 2017-10-04 04:27 | ED PDOC ---
Upper Extremity Pain/Injury Time Seen by Provider: 10/04/17 02:44 Chief Complaint (Nursing): Finger,Hand,&Wrist Chief Complaint (Provider): Lower leg pain History Per: Patient History/Exam Limitations: no limitations Additional Complaint(s): 37 years old male arrived to the ED ambulatory, presents complaining of pain to the right lower leg after he fell. Contrary to triage note, he does not have any hand or arm pain. Patient denies any head injuries, loss of consciousness, numbness or any other injuries. Past Medical History Reviewed: Historical Data, Nursing Documentation, Vital Signs Vital Signs: Last Vital Signs Temp 97.5 F L 10/04/17 02:34 Pulse 81 10/04/17 02:34 Resp 18 10/04/17 02:34 BP 112/76 10/04/17 02:34 Pulse Ox 97 10/04/17 02:34 - Medical History PMH: Anxiety, Asthma, Back Problems, Bipolar Disorder, Depression, HTN (no meds) , Pancreatitis Denies: HIV, Chronic Kidney Disease, Seizures, Sexually Transmitted Disease - Surgical History Surgical History: Endoscopy - Family History Family History: States: Unknown Family Hx - Social History Current smoker - smoking cessation education provided: Yes (cigarettes) Alcohol: None Drugs: Denies - Immunization History Hx Tetanus Toxoid Vaccination: Yes Hx Influenza Vaccination: No Hx Pneumococcal Vaccination: No - Home Medications Home Medications: Ambulatory Orders Medication Instructions Recorded Ibuprofen [Motrin] 600 mg PO TID #15 tab 10/02/17 - Allergies Allergies/Adverse Reactions: Allergies Allergy/AdvReac Type Severity Reaction Status Date / Time shrimp Allergy SWELLING Verified 10/03/17 22:58 Review of Systems ROS Statement: Except As Marked, All Systems Reviewed And Found Negative ENT: Positive for: Other (Pain to the right chin) Neurological: Negative for: Numbness Physical Exam - Physical Exam Comments: GENERAL APPEARANCE: Patient is awake, alert, oriented x 3, in no acute distress. SKIN: Warm, dry; (-) cyanosis. EXTREMITIES: (+) mild tenderness to right anterior tib/fib, (-) edema, (-) ecchymosis, (+) FROM, (+) distal pulses and sensation intact. - ECG O2 Sat by Pulse Oximetry: 97 (RA) Pulse Ox Interpretation: Normal Medical Decision Making Medical Decision Making: Initial Plan: --Naproxen 500 mg PO --Tibia Fibula Right (RAD) XR R tib-fib : no fracture, no dislocation, as read by PA. X-ray results discussed with the patient in great detail. Patient instructed to rest, ice and elevate the R leg. crutch walking. Patient instructed to follow- up with the clinic in 1-2 days without fail. Advised to take otc nsaids prn for pain. Return to the emergency room at any time for any new or worsening symptoms. Patient states he fully agrees with and understands discharge instructions. States that he agrees with the plan and disposition. Verbalized and repeated discharge instructions and plan. I have given the patient opportunity to ask any additional questions. Scribe Attestation: Documented by Iza Aleman, acting as a scribe for Provider Scribe Attestation: All medical record entries made by the Scribe were at my direction and personally dictated by me. I have reviewed the chart and agree that the record accurately reflects my personal performance of the history, physical exam, medical decision making, and the department course for this patient. I have also personally directed, reviewed, and agree with the discharge instructions and disposition. Disposition - Clinical Impression Clinical Impression: Right leg pain - Patient ED Disposition Is Patient to be Admitted: No - Disposition Referrals: [facility] [Outside] Disposition: Routine/Home Disposition Time: 03:30 Condition: STABLE Additional Instructions: Rest, ice and elevate your leg. take over the counter motrin as needed for pain. Instructions: Contusion (DC) Forms: Rent Here (Urdu) - PA / ROADWAY DES[employer]ER / Resident Statement / has reviewed & agrees with the documentation as recorded.
--- NOTE | 2017-10-04 08:26 | RAD ---
HISTORY: pain COMPARISON: No prior FINDINGS: BONES: Normal. No fracture. JOINTS: Normal. No osteoarthritis. SOFT TISSUE: Normal. OTHER FINDINGS: None . IMPRESSION: Normal Bone Xray.
== END 2017-10-04 05:43 | disposition home or self-care (01) ==
LOC: H.ER 02:28
DX: M79.604 Pain in right leg (principal); F31.9 Bipolar disorder, unspecified; F41.9 Anxiety disorder, unspecified; I10 Essential (primary) hypertension

== ENCOUNTER 2017-10-29 23:53 | Emergency (ER) | payer OTHER ==
[2017-10-29 23:54] VITALS: BMI 24.3
[2017-10-30 00:01] VITALS: BP 133/120; PULSE 87; RESP 17; TEMP 98; O2SAT 97
== END 2017-10-30 02:45 | disposition left against medical advice (07) ==
LOC: H.ER 23:53
DX: Z02.89 Encounter for other administrative examinations (principal)